=== PATIENT | male | born 1935 | race Caucasian/White ===

== ENCOUNTER 2016-11-25 08:25 | Outpatient (CLI) | payer MEDICARE, BC ==
--- NOTE | 2016-11-25 14:40 | Diagnostic Imaging Report ---
Indication: COUGH Technique: Two views of the chest Comparison: none Findings: There is mild pectus excavatum. Lungs and pleural spaces are clear. Heart size is normal. Lungs may be slightly hyperinflated. Impression: Equivocal mild pulmonary parenchyma hyperinflation. Correlate with clinical history No acute process
== END 2016-11-25 10:25 | disposition home or self-care (01) ==
LOC: RAD 08:25
DX: R05 Cough (principal)
CPT/HCPCS: 71020

== ENCOUNTER 2016-12-06 07:30 | Day surgery (SDC) | payer MEDICARE, BC ==
[~2016-12-06] VITALS: Ht 172.7 cm; Wt 61.2 kg
[2016-12-06] VITALS (9 sets, daily range): BP systolic 117–145; BP diastolic 69–85
[~2016-12-06 07:30] MED LIST: CRESTOR10 M2 ORAL; FISH OIL CAP1000 MG ORAL; MICARDIS40 MG ORAL; PROSCAR5 MG ORAL; VITAMIN D400 INTLU ORAL
[2016-12-06] MEDS ORDERED: LR 1000ml 1,000 ML IV SCH (08:00)
--- NOTE | 2016-12-06 10:28 | Pre-Procedure Note/Attestation ---
Pre-Procedure Note/Attestation Complete Prior to Procedure Planned Procedure: left Procedure Narrative: left inguinal hernia repair with mesh Indications for Procedure Pre-Operative Diagnosis: left inguinal hernia Attestation I attest that I discussed the nature of the procedure; its benefits; risks and complications; and alternatives (and the risks and benefits of such alternatives ), prior to the procedure, with the patient (or the patient's legal cash application representative). I attest that, if there was a reasonable possibility of needing a blood transfusion, the patient (or the patient's legal cash application representative) was given the [facility] standardized written summary, pursuant to the Vishnu Storm Blood Safety Act ([place] Health and Safety Code # 1645, as amended). I attest that I re-evaluated the patient just prior to the surgery and that there has been no change in the patient's H&P, except as documented below:none GUILLE BORJAS Dec 06, 2016 10:28
[2016-12-06] MEDS ORDERED: Bupivacaine w/Epi 0.5% 30ml Vial INJ ONE (11:17)
[2016-12-06] MEDS ORDERED: Bacitracin 50000 Units Vial ONE (11:17)
[2016-12-06] MEDS ORDERED: NS Irrig 1000ml IRRIG ONE (11:56)
--- NOTE | 2016-12-06 12:10 | Anethesia Preoperative Eval ---
Anesthesia Pre-op PMH/ROS General Date of Evaluation: Dec 06, 2016 Time of Evaluation: 11:12 Anesthesiologist: Yarely ASA Score: ASA 3 Mallampati Score Class I : Soft palate, uvula, fauces, pillars visible Class II: Soft palate, uvula, fauces visible Class III: Soft palate, base of uvula visible Class IV: Only hard plate visible Mallampati Classification: Class II Surgeon: Harrison Diagnosis: L Inguinal Hernia Surgical Procedure: L Inguinal Hernia Repair Anesthesia History: none Family History: no anesthesia problems Allergies: Coded Allergies: No Known Allergies (Unverified , 12/03/16) Medications: see eMAR Past Medical History Cardiovascular: Reports: HTN, other - HL Pulmonary: Reports: JAYLA Gastrointestinal/Genitourinary: Reports: GERD, other - BPH Musculoskeletal/Integumentary: Reports: other - Spine Pain PSxH Narrative: B Inguinal Hernia Repair, Colonoscopy Anesthesia Pre-op Phys. Exam Physician Exam Last Vital Signs Date Time Temp Pulse Resp B/P Pulse Ox O2 Delivery O2 Flow Rate FiO2 12/06/16 08:16 97.1 69 20 117/78 98 Room Air Constitutional: NAD Neurologic: CN 2-12 intact Cardiovascular: RRR Respiratory: CTA Gastrointestinal: S/NT/ND Airway Exam Mallampati Score: Class II MO: full ROM: full Teeth: missing Anesthesia Pre-op A/P Risk Assessment & Plan Assessment: ASA 3 Plan: GA, BIS, Glidescope Status Change Before Surgery: No Pre-Antibiotics Dru Gram Ancef IV Given Within 1 Hr of Incision: Yes Time Given: 11:31 Fab Pritchett MD Dec 06, 2016 12:10
[2016-12-06] MEDS ORDERED: LR 1000ml 1,000 ML IVLG SCH (12:11)
--- NOTE | 2016-12-06 12:14 | Immediate Post-Op Evaluation ---
Immediate Post-Op Evalulation Immediate Post-Op Evalulation Procedure: L Inguinal Hernia Repair Date of Evaluation: Dec 06, 2016 Time of Evaluation: 13:19 IV Fluids: 900 LR Blood Products: 0 Estimated Blood Loss: 25 Urinary Output: 0 Blood Pressure Systolic: 145 Blood Pressure Diastolic: 85 Pulse Rate: 73 Respiratory Rate: 16 O2 Sat by Pulse Oximetry: 100 Temperature (Fahrenheit): 97.8 Pain Score (1-10): 2 Nausea: No Vomiting: No Complications 0 Patient Status: awake, reacts, patent, extubated, none Hydration Status: adequate Dru Gram Ancef IV Given Within 1 Hr of Incision: Yes Time Given: 11:31 Fab Pritchett MD Dec 06, 2016 12:14
[2016-12-06] MEDS ORDERED: Ketorolac 30mg Inj IV PRN (12:15)
[2016-12-06] MEDS ORDERED: LORazepam Inj 2mg/ml 1ml IV PRN (12:15)
[2016-12-06] MEDS ORDERED: DiphenhydrAMINE 50mg/ml Inj IVP PRN (12:15)
[2016-12-06] MEDS ORDERED: Hydromorphone 0.5mg/0.5ml inj IVP PRN ×2 (12:15→18:01)
[2016-12-06] MEDS ORDERED: Oxycodone/Acetaminophen 5-325 ORAL PRN (12:15)
[2016-12-06] MEDS ORDERED: Atropine Inj 1mg/10ml Syr IV PRN (12:15)
[2016-12-06] MEDS ORDERED: Metoclopramide 10mg/2ml Inj IVP PRN (12:15)
[2016-12-06] MEDS ORDERED: Norco 5mg/325mg tab ORAL PRN (12:15)
[2016-12-06] MEDS ORDERED: Midazolam 2mg/2ml Inj IVP PRN (12:15)
[2016-12-06] MEDS ORDERED: Meperidine 25mg/0.5ml Inj IV PRN (12:15)
[2016-12-06] MEDS ORDERED: Norco 7.5mg/325mg tab ORAL PRN (12:15)
[2016-12-06] MEDS ORDERED: fentaNYL 100 mcg/2 mL IV PRN (12:15)
[2016-12-06] MEDS ORDERED: Ketorolac 60mg Inj IV PRN (12:15)
--- NOTE | 2016-12-06 12:15 | 48 Hour Post Anesthesia Eval ---
Post Anesthesia Evaluation Procedure: L Inguinal Hernia Repair Date of Evaluation: Dec 06, 2016 Time of Evaluation: 15:22 Blood Pressure Systolic: 146 0: 77 Pulse Rate: 68 Respiratory Rate: 18 Temperature (Fahrenheit): 98.2 O2 Sat by Pulse Oximetry: 100 Airway: patent Nausea: No Vomiting: No Pain Intensity: 2 Hydration Status: adequate Cardiopulmonary Status: Stable Mental Status/LOC: patient returned to baseline Follow-up Care/Observations: 0 Post-Anesthesia Complications: 0 Follow-up care needed: ready to discharge Fab Pritchett MD Dec 06, 2016 12:15
[2016-12-06] MEDS ORDERED: Neostigmine 1mg/ml 10ml Inj ONE (12:21)
--- NOTE | 2016-12-06 12:58 | Brief Operative Note ---
Immediate Post Operative Note Operative Note Pre-op Diagnosis: left inguinal hernia Procedure: repair left inguinal hernia with mesh recurrent) Post-op Diagnosis: same Surgeon: Aruna Anesthesiologist: Yarely Anesthesia: general, local Specimen: yes Complications: yes Estimated Blood Loss: minimal Drains: none Implant(s) used?: Yes - mesh GUILLE BORJAS Dec 06, 2016 12:58
[2016-12-06] MEDS ORDERED: D5 1/2NS w/KCl 20mEq 1,000 ML IV SCH (18:01)
[2016-12-06] MEDS ORDERED: HYDROmorphone 1mg/ml Carpuject IVP PRN (18:01)
--- NOTE | 2016-12-07 05:31 | Operative Note - Dictated ---
DATE OF OPERATION: 12/06/2016 SURGEON: Low Terry M.D. ANESTHESIOLOGIST: Fab Pritchett M.D. PREOPERATIVE DIAGNOSIS: Recurrent left inguinal hernia. POSTOPERATIVE DIAGNOSIS: Recurrent left inguinal hernia. PROCEDURES: Repair of left inguinal hernia with mesh. INDICATION: The patient was seen and examined. The patient of Dr. Zapata sent for repair of left inguinal hernia. The patient has had a previous repair years ago. There was presence of a large partially reducible bulge. The patient has been explained the pathophysiology, indications for surgery, risks, benefits, complications, need for mesh possibility, and possible recurrence of the hernia. He understands and agrees to proceed. OPERATIVE FINDINGS: The patient had a significant scarring with destruction of the shelving border and the fascia. There was a large indirect inguinal hernia with a very thin-walled sac repaired in the following manner. PROCEDURE IN DETAIL: The patient was identified in the preoperative holding area and the site was marked. He was brought into the operating room, induced with general anesthesia and endotracheal intubation. The abdomen was prepped and draped in the usual and sterile manner. Time-out performed confirming the patient's position, procedure, anesthesia, antibiotic, and allergy status. An incision was made in the left groin and carried down the skin and subcutaneous tissue. The Lacey's fascia was divided. The external oblique fascia was dissected. On opening, it was found that there is significant destruction that the shelving border cannot even be seen. The cord structures were carefully mobilized from the surrounding tissue and encircled with Rich drain. The dissection was carried down and with the cord structures now freed up, indirect hernia sac was identified and mobilized away from the cord. It was nicked and opened and then dissected down to the internal ring. There is some adhesions inside the sac that were divided and reduced. There is no bowel or viscera in the sac. The sac was suture ligated, but there was noted to be a thickened yellowish fatty pad on the sac. The sac was suture ligated with 2-0 Vicryl x2 and excised and sent to pathology for examination. The repair was then made using a piece of Marlex mesh cut in a parabolic shape. It was sutured to the condensation of transversalis fascia with a running 2-0 Prolene. The other side was sutured to the external oblique fascia at the site of where the shelving border was supposed to be. As mentioned, the tissue was very heavily scarred and partially missing. However, we were satisfied with the repair. The suture lines were carried above the internal ring and sutured to the fascia themselves.The mesh was trimmed. The cord structures were then replaced in the normal position. The external oblique fascia was then closed after making sure the sponge and needle count was correct, there was no active bleeding, and the mesh position was correct. The external oblique fascia was closed with running 2-0 Vicryl, the Lacey's fascia with 3-0 Vicryl, and skin closed with running 4-0 Vicryl subcuticular. A total 20 mL of 0.25% Marcaine locally infiltrated. The skin was then covered with Steri-Strips, 4 x 4, and an OpSite or Tegaderm. The blood loss was less than 10 mL. Both testes were in the scrotal sac in a normal position. Low Terry M.D. DR: LEO JOB#: [id number] CC: Low Terry M.D.; Fax#: [phone] Bennett M.D. ; Fax#: [phone] Zapata M.D.; Fax#: [phone] SUE
[2016-12-07] MEDS ORDERED: NORCO 5-325 TA1 EAC1 ORAL (08:45)
== END 2016-12-06 14:25 | disposition home or self-care (01) ==
LOC: SUR 07:30
DX: K40.91 Unilateral inguinal hernia, without obstruction or gangrene, recurrent (principal); I10 Essential (primary) hypertension; E78.5 Hyperlipidemia, unspecified; K21.9 Gastro-esophageal reflux disease without esophagitis; N40.0 Benign prostatic hyperplasia without lower urinary tract symptoms; G47.33 Obstructive sleep apnea (adult) (pediatric); J45.909 Unspecified asthma, uncomplicated
CPT/HCPCS: 49520; C1781; J2710; 94003; 94150

== ENCOUNTER 2016-12-07 08:26 | Emergency (ER) | payer MEDICARE, BC ==
[~2016-12-07] VITALS: Ht 172.7 cm; Wt 61.2 kg
[2016-12-07] MEDS ORDERED: NORCO 5-325 TA1 EAC1 ORAL (08:45)
[2016-12-07 09:14] VITALS: BP 104/42
--- NOTE | 2016-12-07 09:16 | Emergency Room Report ---
History of Present Illness General Chief Complaint: General Complaint Source: Patient, Caregiver Present Illness HPI The patient presents with bleeding from his incision site. He had a hernia repair yesterday at noon. There was no bleeding until he stood up this morning about 6:00. It soaked his clothes. The dressing was not changed. Not on blood thinner. No dizziness when standing. No fevers. Took pain pill in AM, though he denies he had any pain at that time. There is bruising in the groin and penis. He has been decreasing his blood pressure medicines at the recommendation of his doctors recently. No chest pain, dyspnea, dysuria. Not moved bowels 2 days. No abdominal pain. No HERNANDEZ. This is second surgery for hernia on L side. Allergies: Coded Allergies: No Known Allergies (Unverified , 12/03/16) Patient History Past Medical History: see triage record Past Surgical History: other - hernia repair Social History Narrative with radius grinder Reviewed Nursing Documentation: PMH: Agreed, PSxH: Agreed Nursing Documentation-PMH Hx Cardiac Problems: Yes Hx Hypertension: Yes Hx Cancer: No Hx Gastrointestinal Problems: Yes - hernias Hx Neurological Problems: No Review of Systems All Other Systems: negative except mentioned in HPI Physical Exam Vital Signs Date Time Temp Pulse Resp B/P Pulse Ox O2 Delivery O2 Flow Rate FiO2 12/07/16 08:37 98.2 83 16 99/61 98 Room Air Sp02 EP Interpretation: reviewed, normal General Appearance: well appearing, no apparent distress, GCS 15, thin - frail Head: normocephalic, atraumatic Eyes: bilateral eye PERRL, bilateral eye normal inspection ENT: hearing grossly normal, normal voice, moist mucus membranes Neck: full range of motion, supple Respiratory: lungs clear, normal breath sounds, no respiratory distress, speaking full sentences Cardiovascular #1: regular rate, rhythm Cardiovascular #2: 2+ radial (R), 2+ femoral (L) Gastrointestinal: normal bowel sounds, non tender, soft, no organomegaly, non- distended, no guarding, other - groin with serosanguineous fluid from incision. No active bleed or continued oozing., scaphoid Genitourinary: other - ecchymoses of penis Musculoskeletal: no calf tenderness Neurologic: alert, oriented x3, motor strength/tone normal, sensory intact, normal gait, speech normal Psychiatric: mood/affect normal Skin: hematoma - L groin, incision site without erythema or active bleed Medical Decision Making Diagnostic Impression: Primary Impression: Post-op bleeding Qualified Codes: K91.840 - Postprocedural hemorrhage of a digestive system organ or structure following a digestive system procedure Additional Impression: Hypotension (arterial) Qualified Codes: I95.9 - Hypotension, unspecified ER Course Patient presents with post op bleeding. DDx: vascular bleeding, seroma, hematoma amongst others. Need to assess H/H and INR. The patient was transiently hypotensive here. DDX: TX, dehydration, hemorrhagic shock, excess medication amongst others. This in the light of bleeding complicated the work up and we need to exclude TX. EKG and CMP needed. EKG below - no acute changes. Labs with slight leukocytosis, creat 1.2. Taking blood pressure between left and right side to look for difference. On the right he was normotensive. After given a small fluid bolus he became normotensive on the left-hand side also. He was ambulatory without any weakness or dizziness. There was no more bleeding from the postoperative site. Patient stable for outpatient observation and treatment Labs Test 12/07/16 09:08 White Blood Count 11.9 K/UL (4.8-10.8) Red Blood Count 3.76 M/UL (4.70-6.10) Hemoglobin 12.7 G/DL (14.2-18.0) Hematocrit 38.6 % (42.0-52.0) Mean Corpuscular Volume 103 FL (80-99) Mean Corpuscular Hemoglobin 33.9 PG (27.0-31.0) Mean Corpuscular Hemoglobin Concent 33.0 G/DL (32.0-36.0) Red Cell Distribution Width 12.3 % (11.6-14.8) Platelet Count 126 K/UL (150-450) Mean Platelet Volume 9.6 FL (6.5-10.1) Neutrophils (%) (Auto) 81.3 % (45.0-75.0) Lymphocytes (%) (Auto) 9.6 % (20.0-45.0) Monocytes (%) (Auto) 8.8 % (1.0-10.0) Eosinophils (%) (Auto) 0.0 % (0.0-3.0) Basophils (%) (Auto) 0.3 % (0.0-2.0) Prothrombin Time 11.3 SEC (9.30-11.50) Prothromb Time International Ratio 1.1 (0.9-1.1) Activated Partial Thromboplast Time 26 SEC (23-33) Sodium Level 130 mEQ/L (135-145) Potassium Level 4.0 mEQ/L (3.4-4.9) Chloride Level 94 mEQ/L (98-107) Carbon Dioxide Level 22 mEQ/L (20-30) Anion Gap 14 (5-15) Blood Urea Nitrogen 15 mg/dL (7-23) Creatinine 1.2 mg/dL (0.7-1.2) Estimat Glomerular Filtration Rate mL/min (>60) Glucose Level 108 mg/dL (74-106) Calcium Level 9.2 mg/dL (8.6-10.2) Total Bilirubin 1.4 mg/dL (0.0-1.2) Direct Bilirubin 0.3 mg/dL (0.1-0.3) Aspartate Amino Transf (AST/SGOT) 22 U/L (5-40) Alanine Aminotransferase (ALT/SGPT) 10 U/L (3-41) Alkaline Phosphatase 48 U/L (40-129) Total Protein 6.4 g/dL (6.6-8.7) Albumin 3.9 g/dL (3.5-5.2) Globulin 2.5 g/dL Albumin/Globulin Ratio 1.5 (1.0-2.7) EKG Diagnostic Results Rate: normal Rhythm: NSR ST Segments: no acute changes Rhythm Strip Diag. Results Rhythm: NSR, no PVC's, no ectopy Last Vital Signs Date Time Temp Pulse Resp B/P Pulse Ox O2 Delivery O2 Flow Rate FiO2 12/07/16 12:12 68 16 99/50 99 Room Air 12/07/16 11:02 98.1 Status: improved Disposition: HOME, SELF-CARE Condition: Improved Referrals: ALYCIA JOHNSON (PCP) Tyree Washington M.D. Dec 07, 2016 09:16
[2016-12-07 09:35] LABS: ALANINE AMINOTRANSFERASE 10 U/L (3-41); ALBUMIN/GLOBULIN RATIO 1.5 (1.0-2.7); ANION GAP 14 (5-15); ASPARTATE AMINO TRANSFERASE 22 U/L (5-40); CALCIUM 9.2 mg/dL (8.6-10.2); CARBON DIOXIDE 22 mEQ/L (20-30); CHLORIDE 94 mEQ/L (98-107); CREATININE 1.2 mg/dL (0.7-1.2); HEMOLYSIS 28; INR 1.1 (0.9-1.1); PROTHROMBIN TIME 11.3 SEC (9.30-11.50); SODIUM 130 mEQ/L (135-145); TOTAL PROTEIN 6.4 g/dL (6.6-8.7)
[2016-12-07 09:37] LABS: BASOPHILS % (AUTO) 0.3 % (0.0-2.0); LYMPHOCYTES % (AUTO) 9.6 % (20.0-45.0); MEAN CORPUSCULAR HEMOGLOBIN 33.9 PG (27.0-31.0); MEAN CORPUSCULAR VOLUME 103 FL (80-99); MEAN PLATELET VOLUME 9.6 FL (6.5-10.1); MONOCYTES % (AUTO) 8.8 % (1.0-10.0); NEUTROPHILS % (AUTO) 81.3 % (45.0-75.0); PLATELET COUNT 126 K/UL (150-450); RED BLOOD COUNT 3.76 M/UL (4.70-6.10); RED CELL DISTRIBUTION WIDTH 12.3 % (11.6-14.8); WHITE BLOOD COUNT 11.9 K/UL (4.8-10.8)
[2016-12-07 09:48] LABS: BILIRUBIN,DIRECT 0.3 mg/dL (0.1-0.3)
[2016-12-07 11:02] VITALS: BP 103/71
[2016-12-07 12:12] VITALS: BP 99/50
--- NOTE | 2016-12-08 17:07 | Cardiology Report ---
APPROVED REPORT EKG Measurement Heart [id number] Sinus rhythm with 1st degree AV block Low voltage QRS Cannot rule out Anterior infarct, age undetermined Abnormal ECG
== END 2016-12-07 12:17 | disposition home or self-care (01) ==
LOC: EMR 09:02
DX: K91.840 Postprocedural hemorrhage of a digestive system organ or structure following a digestive system procedure (principal); I95.9 Hypotension, unspecified; I10 Essential (primary) hypertension
CPT/HCPCS: 36415; 80053; 82248; 85025; 85610; 85730; 93005; 96360

== ENCOUNTER 2017-06-29 07:45 | Outpatient (CLI) | payer MEDICARE, BC ==
[~2017-06-29 07:45] MED LIST changes: +NORCO 5-325 TA1 EAC1 ORAL
--- NOTE | 2017-06-29 10:55 | Diagnostic Imaging Report ---
Indication: Cough Technique: 2 views of the chest Comparison: 11/25/2016. Findings: Lungs and pleural spaces are clear. Heart size is normal. Bones are unremarkable. No significant change. Impression: No acute process
== END 2017-06-29 19:45 | disposition home or self-care (01) ==
LOC: RAD 07:45
DX: R05 Cough (principal)
CPT/HCPCS: 71046

== ENCOUNTER 2017-07-04 05:46 | Day surgery (SDC) | payer MEDICARE, BC ==
--- NOTE | 2017-07-03 23:06 | Pre-op HX & Phy Repo 2 SIG ---
DATE OF ADMISSION: 07/04/2017 DATE OF SURGERY: 07/04/2017 PREOPERATIVE DIAGNOSIS: Recurrent left inguinal hernia. HISTORY OF PRESENT ILLNESS: The patient is a very pleasant 81-year-old male who was referred to me kindly by Dr. Jose Rafael Zapata for evaluation of a potentially recurrent left inguinal hernia. The patient states that he has had two prior left inguinal hernia repairs in the past beginning with an initial one approximately 10 to [address] Bay Bennett followed by a recurrence and repeat left inguinal hernia repair by Dr. Low Terry approximately 1 year ago. Since then, he has noted some discomfort in the left groin region and a reducible bulge, which is worse when he is upright and straining, and reduced when he is lying supine. Denies any obstructive symptoms. He has fortunately not had any complications of incarceration and believes that only recurred in the past few months. PAST MEDICAL HISTORY: Hypertension, diverticulosis, bilateral inguinal hernia status post repair with recurrence on the left side, BPH, sleep apnea, reactive airway disease. PAST SURGICAL HISTORY: Bilateral inguinal hernia repair 10 to 15 years ago followed by recurrence on the left side requiring repeat left inguinal hernia repair and currently possibly has another recurrence. The patient had tonsillectomy and cystoscopy prior as well, a root canal surgery, and a boil drainage. FAMILY HISTORY: Father . Mother . The patient indicates family history of heart disease on the mother's side and hypertension on the father's side. Father of brain cancer. Brother has schizophrenia and BPH. SOCIAL HISTORY: The patient is retired. He lives with his brother in a home in [place]. He is single and unemployed. He does not smoke, drink, or use drugs. REVIEW OF SYSTEMS: Twelve-point review of systems negative except for as HPI. PHYSICAL EXAMINATION: GENERAL: Alert, awake, oriented x3, in no acute distress. HEENT: PERRLA. Extraocular movements intact. Cranial nerves II through XII grossly intact. LUNGS: Clear to auscultation bilaterally. ABDOMEN: Soft, nontender, nondistended. Bowel sounds positive. GENITOURINARY: The patient has a right inguinal incision, it is well healed. The patient has a left inguinal hernia incision that is well healed. He has a reducible left inguinal budge that is in a mildly atypical position above and lateral to the inguinal ligament, very easily reproducible with Valsalva and easily reduced without complications. The right testicle is normal and the right inguinal canal is normally palpated. The left testicle is present, but there is a significant amount of scar tissue versus potential mesh migration in the left groin around the pubic tubercle and the old surgical incision site. This is a hardened mass area that could be potentially migrated mesh versus scar tissue. EXTREMITIES: Within normal limits. LABORATORY DATA: Please refer to secondary sheets with labs. ASSESSMENT AND PLAN: This is a 81-year-old male with a possible recurrent left inguinal hernia that is fairly moderate in size in an atypical location and complicated given two prior repairs with mesh. The area of thickening around the caudal medial location to the hernia, which is likely potentially mesh migration from his prior surgeries. The patient states that it does cause him discomfort and it is moderate in size and fortunately not having complications for me. He has requested repair. Risks, benefits, and alternatives to surgery including a second redo hernia surgery were discussed with the patient in detail. I explained to him that he is at much higher risk than the initial surgery given second surgery given the two prior mesh placements and can result in infection, bleeding, mesh migration, injury to the mesh, injury to the cord, loss of testicle, long-term pain, neuropathy, and potential failure of surgery given the prior surgeries as well. The patient expressed understanding and requested to proceed with surgical intervention and consent was signed. Plan is for a laparoscopic versus open left inguinal hernia repair with mesh. Given his two prior surgeries and the amount of scar tissue in the left groin region, we will begin with laparoscopic evaluation of the left hemipelvis and groin. In following, we will decide if necessary to proceed with laparoscopic repair or open repair. I discussed with the patient that this could potentially also be a incisional hernia from his prior surgeries. Planned schedule date 07/04/2017. Preoperative workup completed by Dr. Jose Rafael Zapata and the patient has been evaluated by Dr. Figueroa in the office. Dario Figueroa M.D. DR: Sean JOB#: [id number] CC: SUE
[~2017-07-04] VITALS: Ht 172.7 cm; Wt 63.5 kg
[2017-07-04] VITALS (12 sets, daily range): BP systolic 122–140; BP diastolic 67–76
[2017-07-04] MEDS ORDERED: LR 1000ml 1,000 ML IVLG SCH (06:59)
[2017-07-04] MEDS ORDERED: Midazolam 2mg/2ml Inj IVP PRN (07:00)
[2017-07-04] MEDS ORDERED: Ketorolac 30mg Inj IV PRN (07:00)
[2017-07-04] MEDS ORDERED: Hydromorphone 0.5mg/0.5ml inj IVP PRN (07:00)
[2017-07-04] MEDS ORDERED: Ketorolac 60mg Inj IV PRN (07:00)
[2017-07-04] MEDS ORDERED: fentaNYL 100 mcg/2 mL IV PRN (07:00)
[2017-07-04] MEDS ORDERED: ceFAZolin sod 2 GM in NS 55 ML IVPB ONE (07:00)
[2017-07-04] MEDS ORDERED: LORazepam Inj 2mg/ml 1ml IV PRN (07:00)
[2017-07-04] MEDS ORDERED: Acetaminophen (Non formulary) 100 ML IV ONE (07:00)
[2017-07-04] MEDS ORDERED: oxyCODONE HCL/Acetaminophen 5/325mg ORAL PRN (07:00)
[2017-07-04] MEDS ORDERED: Labetalol 5mg/ml 20ml vial IV PRN (07:00)
[2017-07-04] MEDS ORDERED: HYDROcodone/Acetamin 7.5/325 tab ORAL PRN (07:00)
[2017-07-04] MEDS ORDERED: Atropine Inj 1mg/10ml Syr IV PRN (07:00)
[2017-07-04] MEDS ORDERED: DiphenhydrAMINE 50mg/ml Inj IVP PRN (07:00)
[2017-07-04] MEDS ORDERED: Norco 5mg/325mg tab ORAL PRN ×2 (07:00→09:45)
[2017-07-04] MEDS ORDERED: Bupivacaine 0.5% Inj 30 ml vial INJ ONE ×2 (07:03→07:15)
[2017-07-04] MEDS ORDERED: EPINEPHrine 1mg/1ml Amp ONE (07:03)
[2017-07-04] MEDS ORDERED: Lidocaine 1% Plain 30 ml INJ ONE (07:03)
[2017-07-04] MEDS ORDERED: Bacitracin 50000 Units Vial ONE (07:03)
[2017-07-04] MEDS ORDERED: Bacitracin 50000 Units Vial IRRIG ONE (07:15)
[2017-07-04] MEDS ORDERED: EPINEPHrine 1mg/1ml Amp INJ ONE (07:15)
--- NOTE | 2017-07-04 07:24 | Anethesia Preoperative Eval ---
Anesthesia Pre-op PMH/ROS General Date of Evaluation: Jul 04, 2017 Time of Evaluation: 07:26 Anesthesiologist: Yarely ASA Score: ASA 3 Mallampati Score Class I : Soft palate, uvula, fauces, pillars visible Class II: Soft palate, uvula, fauces visible Class III: Soft palate, base of uvula visible Class IV: Only hard plate visible Mallampati Classification: Class II Surgeon: Henry Diagnosis: Left Inguinal Hernia Surgical Procedure: Laparoscopic Inguinal Hernia repair Left Anesthesia History: none Family History: no anesthesia problems Allergies: Coded Allergies: No Known Allergies (Unverified , 12/03/16) Medications: see eMAR Past Medical History Cardiovascular: Reports: HTN, other - HL Pulmonary: Reports: asthma, JAYLA Gastrointestinal/Genitourinary: Reports: GERD, other - BPH, Diverticulitis PSxH Narrative: Bilateral Hernia Repair Anesthesia Pre-op Phys. Exam Physician Exam Last Vital Signs Date Time Temp Pulse Resp B/P (MAP) Pulse Ox O2 Delivery O2 Flow Rate FiO2 18 06:20 98.3 65 18 131/70 98 Room Air Constitutional: NAD Neurologic: CN 2-12 intact Cardiovascular: RRR Respiratory: CTA Gastrointestinal: S/NT/ND Airway Exam Mallampati Score: Class II MO: full ROM: limited Teeth: intact Anesthesia Pre-op A/P Risk Assessment & Plan Assessment: ASA 3 Plan: GA, BIS, GlideScope Go Status Change Before Surgery: No Pre-Antibiotics Dru Grams Ancef IV Given Within 1 Hr of Incision: Yes Time Given: 07:43 Fab Pritchett MD Jul 04, 2017 07:24
[2017-07-04] MEDS ORDERED: Lidocaine 1% MPF 10mg/ml 5ml ONE (07:30)
[2017-07-04] MEDS ORDERED: NS Irrig 1000ml ONE (07:30)
[2017-07-04] MEDS ORDERED: Dexamethasone 4mg/ml vial ONE (07:30)
[2017-07-04] MEDS ORDERED: Midazolam 2mg/2ml Inj ONE (07:30)
[2017-07-04] MEDS ORDERED: LR 1000ml ONE (07:30)
[2017-07-04] MEDS ORDERED: Sterile Water Irrig 1000ml IRRIG ONE (07:30)
[2017-07-04] MEDS ORDERED: Propofol 200mg/20ml IV ONE (07:30)
[2017-07-04] MEDS ORDERED: Alfentanil 2ml Inj ONE (07:30)
--- NOTE | 2017-07-04 07:32 | Immediate Post-Op Evaluation ---
Immediate Post-Op Evalulation Immediate Post-Op Evalulation Procedure: Laparoscopic Inguinal Hernia repair Left Date of Evaluation: Jul 04, 2017 Time of Evaluation: 09:49 IV Fluids: 1100 LR Blood Products: 0 Estimated Blood Loss: 10 Urinary Output: 0 Blood Pressure Systolic: 137 Blood Pressure Diastolic: 72 Pulse Rate: 74 Respiratory Rate: 16 O2 Sat by Pulse Oximetry: 100 Temperature (Fahrenheit): 98.7 Pain Score (1-10): 2 Nausea: No Vomiting: No Complications 0 Patient Status: awake, reacts, patent, extubated, none Hydration Status: adequate Dru grams Ancef IV Given Within 1 Hr of Incision: Yes Time Given: 07:43 Fab Pritchett MD Jul 04, 2017 07:32
--- NOTE | 2017-07-04 08:58 | 48 Hour Post Anesthesia Eval ---
Post Anesthesia Evaluation Procedure: Laparoscopic Inguinal Hernia repair Left Date of Evaluation: Jul 04, 2017 Time of Evaluation: 11:52 Blood Pressure Systolic: 134 0: 71 Pulse Rate: 64 Respiratory Rate: 18 Temperature (Fahrenheit): 98.6 O2 Sat by Pulse Oximetry: 100 Airway: patent Nausea: No Vomiting: No Pain Intensity: 2 Hydration Status: adequate Cardiopulmonary Status: Stable Mental Status/LOC: patient returned to baseline Follow-up Care/Observations: 0 Post-Anesthesia Complications: 0 Follow-up care needed: ready to discharge Fab Pritchett MD Jul 04, 2017 08:58
--- NOTE | 2017-07-04 09:41 | Pre-Procedure Note/Attestation ---
Pre-Procedure Note/Attestation Complete Prior to Procedure Planned Procedure: left Procedure Narrative: laparoscopic possible open left recurrent inguinal hernia repair with mesh Indications for Procedure Pre-Operative Diagnosis: recurrent left inguinal hernia Attestation I attest that I discussed the nature of the procedure; its benefits; risks and complications; and alternatives (and the risks and benefits of such alternatives ), prior to the procedure, with the patient (or the patient's legal client support representative). I attest that, if there was a reasonable possibility of needing a blood transfusion, the patient (or the patient's legal client support representative) was given the [facility] standardized written summary, pursuant to the Vishnu Octa Blood Safety Act ([place] Health and Safety Code # 1645, as amended). I attest that I re-evaluated the patient just prior to the surgery and that there has been no change in the patient's H&P, except as documented below: Dario Figueroa Jul 04, 2017 09:41
[2017-07-04] MEDS ORDERED: D5 1/2NS 1,000 ML IV SCH (09:45)
[2017-07-04] MEDS ORDERED: Tylenol #3 tab (300mg/30mg) ORAL PRN (09:45)
[2017-07-04] MEDS ORDERED: HYDROmorphone 1mg/ml Carpuject SUBQ PRN (09:45)
--- NOTE | 2017-07-04 15:40 | Brief Operative Note ---
Immediate Post Operative Note Operative Note Pre-op Diagnosis: recurrent left inguinal hernia Procedure: laparoscopic assisted left incisional ventral hernia repair Post-op Diagnosis: left inguinal/lower abdominal incisional ventral hernia Surgeon: janis Anesthesiologist: nirmala Anesthesia: general, local Specimen: none Complications: none Condition: stable Fluids: see records Estimated Blood Loss: minimal Drains: none Implant(s) used?: Dario Coyle Jul 04, 2017 15:40
--- NOTE | 2017-07-05 02:00 | Operative Note - Dictated ---
DATE OF OPERATION: 07/04/2017 PREOPERATIVE DIAGNOSIS: Recurrent left inguinal hernia. POSTOPERATIVE DIAGNOSES: Left inguinal/lower abdominal incisional ventral hernia. OPERATION PERFORMED: Laparoscopic-assisted left incisional ventral hernia repair. ATTENDING SURGEON: Dario Figueroa M.D. NEWSPAPER PHOTOJOURNALIST: None. ANESTHESIOLOGIST: Fab Pritchett M.D. 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 SPECIMENS: None. COMPLICATIONS: None. FLUIDS: Please see the anesthesia record. ESTIMATED BLOOD LOSS: Minimal. DRAINS: None. WOUND CLASSIFICATION: Class I. ANTIBIOTICS: A 2 g Ancef IV given one hour prior to cut time. COUNTS: Sponge and needle count correct x2. INDICATIONS FOR PROCEDURE: The patient is a 81-year-old male, who presented to my office for evaluation of potentially a recurrent left inguinal hernia. The patient had a history of bilateral inguinal hernia repairs approximately 10 to 15 years ago followed by recurrence on the left side, which was repaired approximately one year ago. The patient states that soon after that surgery, he began to notice a bulge in his left lower abdomen/groin. It was causing him discomfort and required reduction at times. When seen in my office, the patient's prior incisions were noted and well healed. He had notable scar tissue from mesh placements noted in the bilateral groins. In the area of the left lower abdomen, left groin around the prior incision, there was a moderate-sized bulge/hernia that was easily reducible and also easily reproducible on examination. Given the discomfort it is causing the patient and the risks, repair was indicated and recommended. Risks, benefits, and alternatives were discussed with the patient in detail. Given this is potentially a recurrence and a second episode of recurrence requiring a third operation and two prior operations were done open with mesh placement, decision was made to proceed with laparoscopic evaluation, potentially laparoscopic versus open repair. Risks, benefits and alternatives discussed in detail. The patient expressed understanding, understood the plan and consented to surgery. OPERATIVE NOTE: The patient was taken to the operating room, placed on the operating table in supine position with bilateral arms out. All bony prominences were well padded with pads. Preoperative time-out was taken identifying the patient, procedure, operative staff, and surgical staff. General anesthesia was induced and the patient was intubated. The left arm was tucked. The abdomen including the bilateral groins were clipped, prepped, and draped in standard surgical fashion. We began by making a small infraumbilical incision. Incision was carried down to the fascia, which was elevated and incised. The abdomen was entered using open Tangela technique without complication. Direct visualization in the abdomen allowed for trocar placement without difficulty. The abdomen was then insufflated to 12 to 15 mmHg. The patient tolerated the insufflation well. A laparoscope was inserted and no complications from initial trocar placement was noted. No abnormalities noted in the right or left upper quadrants. The pelvis was otherwise unremarkable. The right groin was evaluated and no hernia or abnormalities were noted. Good hernia repair from prior herniorrhaphy was noted without recurrence. In the left lower abdomen, the anal canal and entry was identified with cord structures and prior repair. There was no direct or indirect hernia noted, but on examination there was a incisional ventral hernia noted that was superior and medial to the internal canal orifice. Palpation of this area identified a weakening in the tendon sheath superior to the inguinal ligament at the tendon sheath confluence of the musculature would be and the defect was noted. When defect was palpated, the internal ring was easily notable and intact and this area was just inferior and medial to it. Given these findings and no recurrence of the left inguinal direct or indirect hernia, decision was made to proceed with repair of the ventral hernia identified in its proper anatomy laparoscopically. At this time, decision was made to evaluate the hernia further and identify the defect being only approximately 1 to 1.5 centimeters large with a much larger hernia sac. An incision was made in the left lower abdomen at the apex of the hernia sac, which was bulging. Care was taken to just incise the epidermis and dermis and then bluntly dissect out the hernia sac. Fortunately, the hernia sac was easily dissected out and the borders of the fascial defect in the left lower groin were identified. The hernia sac was inverted in and Endoloop placed around the hernia sac. High ligation of the sac internally was performed. Following this, the fascial defect was then closed using multiple interrupted 0 Vicryl sutures. In doing so, the defect was evaluated with insufflation, directly visualized with laparoscope and defect was no longer present and satisfactory repair was identified and noted. Given the small size of the defect and location and it being an incisional ventral defect, decision was made not to place a mesh. Just adjacent to the defect, there was still a mesh from patient's prior left inguinal herniorrhaphy, and the canal contents including the cord and cord structures were just adjacent to it entering through the internal ring and mesh placement would not have been advised. Following satisfactory repair, the wound was irrigated and closed in a two-layer fashion beginning with 3-0 Vicryl dermal sutures followed by 4-0 Monocryl subcuticular suture. The abdomen was then allowed to desufflate and secondary trocars removed under direct visualization and the umbilical trocar removed. The umbilical trocar site fascia was closed using a [id number] 0 Vicryl suture. Remaining skin incisions were closed using a 4-0 Monocryl subcuticular suture. Wounds were cleansed. Dermabond and Steri-Strips were placed. Of note, secondary trocars placed under direct visualization in the suprapubic region without complication. Dario Figueroa M.D. DR: DAKOTA JOB#: [id number] CC: SUE
== END 2017-07-04 13:10 | disposition home or self-care (01) ==
LOC: SUR 05:46
DX: K43.2 Incisional hernia without obstruction or gangrene (principal); K40.90 Unilateral inguinal hernia, without obstruction or gangrene, not specified as recurrent; I10 Essential (primary) hypertension; K57.90 Diverticulosis of intestine, part unspecified, without perforation or abscess without bleeding; F41.9 Anxiety disorder, unspecified; G47.33 Obstructive sleep apnea (adult) (pediatric); K21.9 Gastro-esophageal reflux disease without esophagitis; Z82.49 Family history of ischemic heart disease and other diseases of the circulatory system; Z80.8 Family history of malignant neoplasm of other organs or systems; Z81.8 Family history of other mental and behavioral disorders
CPT/HCPCS: 49657; J0171; J0690; J1100; J2250; J2405; J2704; J3490; J7120; 94003; 94150

== ENCOUNTER 2018-03-03 07:51 | Day surgery (SDC) | payer MEDICARE, MEDICAID ==
[2018-03-03] VITALS (12 sets, daily range): BP systolic 137–168; BP diastolic 61–89
[~2018-03-03] VITALS: Ht 172.7 cm; Wt 63.5 kg
--- NOTE | 2018-03-03 08:48 | Pre-Procedure Note/Attestation ---
Pre-Procedure Note/Attestation Complete Prior to Procedure Planned Procedure: left Procedure Narrative: laparoscopic possible open left recurrent ventral hernia repair with mesh Indications for Procedure Pre-Operative Diagnosis: recurrent left ventral hernia Attestation I attest that I discussed the nature of the procedure; its benefits; risks and complications; and alternatives (and the risks and benefits of such alternatives ), prior to the procedure, with the patient (or the patient's legal telephone services sales representative). I attest that, if there was a reasonable possibility of needing a blood transfusion, the patient (or the patient's legal telephone services sales representative) was given the [facility] standardized written summary, pursuant to the [place] Blood Safety Act ([place] Health and Safety Code # 1645, as amended). I attest that I re-evaluated the patient just prior to the surgery and that there has been no change in the patient's H&P, except as documented below: Dario Figueroa Mar 03, 2018 08:48
--- NOTE | 2018-03-03 08:57 | History and Physical ---
History of Present Illness General Date patient seen: Mar 03, 2018 Present Illness HPI 82 year old male well known to me from prior consultations and surgery. Patient initially seen earlier this year after referral to me for evaluation of incisional inguinal / ventral hernia. States years ago he developed a hernia in his left lower abdomen / inguinal hernia which was repaired at outside facility; unfortunately records not available and patient unsure about exact surgery performed. Since, noted recurrence and had a second repair at outside facility; again records unavailable and patient unsure what recurrence was and how it was repaired. He then developed a hernia but in the lateral superior aspect of prior operative site. complex hernia which was repaired without mesh by myself earlier this year. hernia was more ventral than inguinal and possibly related to opening of oblique fascia during prior surgery. after repair patient did well for 3-4 months post op and had uneventful recovery. unfortunately had recurrence and was seen again recently for evaluation. we discussed these findings and exam was concerning given bowel contents were noted in hernia sac now. no obstructive symptoms. after discussing care plan patient decided he would prefer to have repair again and was scheduled for surgery. Allergies: Coded Allergies: No Known Allergies (Unverified , 12/03/16) Medication History Scheduled Finasteride* (Proscar*), 5 MG ORAL DAILY, (Reported) Fish Oil (Fish Oil 1,000 mg Capsule), 1,000 MG ORAL DAILY, (Reported) Telmisartan (Micardis), 20 MG ORAL QOD, (Reported) Vitamin D (Vitamin D3), 2,000 UNITS ORAL DAILY, (Reported) Patient History History Provided By: Patient, PMD Healthcare decision maker N Resuscitation status Advanced Directive on File Past Medical/Surgical History Past Medical/Surgical History: (1) Ventral incisional hernia without obstruction or gangrene (2) Recurrent ventral incisional hernia (3) Hypotension (arterial) (4) Post-op bleeding Review of Systems Constitutional: Denies: no symptoms, see HPI, chills, sweats, fever, malaise, weakness, other Eye: Denies: no symptoms, see HPI, eye pain, blurred vision, tearing, double vision, nose pain, nose congestion, acuity changes, discharge, other ENT: Denies: no symptoms, see HPI, ear pain, ear discharge, nose pain, nose congestion, throat pain, throat swelling, mouth pain, hearing loss, nasal discharge, other Respiratory: Denies: no symptoms, see HPI, cough, orthopnea, shortness of breath, stridor, wheezing, [place], sputum, other Cardiovascular: Denies: no symptoms, see HPI, chest pain, edema, palpitations, syncope, PND, other Gastrointestinal: Denies: no symptoms, see HPI, abdominal pain, constipation, diarrhea, nausea, vomiting, melena, hematemesis, other Genitourinary: Denies: no symptoms, see HPI, discharge, dysuria, frequency, hematuria, pain, retention, incontinence, urgency, vag bleed/dc, other Musculoskeletal: Denies: no symptoms, see HPI, back pain, gout, joint pain, joint swelling, muscle pain, muscle stiffness, other Skin: Denies: no symptoms, see HPI, rash, change in color, change in hair/nails , dryness, lesions, other Psychiatric: Denies: no symptoms, see HPI, prior hx, anxiety, depressed feelings, emotional problems, SI, HI, hallucinations, other Neurological: Denies: no symptoms, see HPI, headache, numbness, paresthesia, seizure, tingling, tremors, focal weakness, syncope, dizziness, other Endocrine: Denies: no symptoms, see HPI, excessive sweating, flushing, intolerance to temperature, increased thirst, increased urine, unexplained weight loss, other Hematologic/Lymphatic: Denies: no symptoms, see HPI, anemia, blood clots, easy bleeding, easy bruising, swollen glands, diathesis, other All Other Systems: negative except mentioned in HPI Physical Exam General Appearance: no apparent distress, alert Lines, tubes and drains: peripheral HEENT: normocephalic, atraumatic, mucous membranes moist, PERRL Neck: normal inspection Respiratory/Chest: normal breath sounds, no respiratory distress, no accessory muscle use Cardiovascular/Chest: normal rate, regular rhythm Abdomen: soft, no organomegaly, no mass, hernia Extremities: normal range of motion, non-tender, normal inspection, no calf tenderness Skin Exam: warm/dry Neurologic: alert, oriented x 3 Last 24 Hour Vital Signs Date Time Temp Pulse Resp B/P (MAP) Pulse Ox O2 Delivery O2 Flow Rate FiO2 03/03/18 08:37 Room Air 03/03/18 08:35 97.7 79 18 160/89 97 Room Air 97.7 Height (Feet): 5 Height (Inches): 8.00 Weight (Pounds): 140 Assessment/Plan Problem List: (1) Recurrent ventral incisional hernia Assessment & Plan: Plan for laparoscopic possible open left recurrent ventral hernia repair with mesh discussed recurrence with patient and decision made to use mesh during this repair given consent obtained npo ivf pre op abx to OR for laparoscopic possible open left recurrent ventral hernia repair with mesh ICD Codes: K43.2 - Incisional hernia without obstruction or gangrene SNOMED: [id number] Status: stable Dario Figueroa Mar 03, 2018 08:57
[2018-03-03] MEDS ORDERED: Sterile Water For Irrig 2000ml IRRIG ONE (09:00)
[2018-03-03] MEDS ORDERED: ceFAZolin sod 2 GM in D5W 110 ML IV ONE (09:00)
[2018-03-03] MEDS ORDERED: Sterile Water Irrig 1000ml IRRIG ONE (09:00)
[2018-03-03] MEDS ORDERED: NS Irrig 1000ml ONE (09:00)
[2018-03-03] MEDS ORDERED: Zemuron 50mg/5ml Inj IV ONE (09:00)
[2018-03-03] MEDS ORDERED: LR 1000ml ONE (09:00)
[2018-03-03] MEDS ORDERED: Lidocaine 1% MPF 10mg/ml 5ml ONE (09:18)
[2018-03-03] MEDS ORDERED: Propofol 200mg/20ml IV ONE (09:18)
[2018-03-03] MEDS ORDERED: fentaNYL 100 mcg/2 mL IV ONE (09:18)
[2018-03-03] MEDS ORDERED: Bupivacaine w/Epi 0.25% 30ml Vial INJ ONE (09:32)
[2018-03-03] MEDS ORDERED: LR 1000ml 1,000 ML IVLG SCH (09:46)
--- NOTE | 2018-03-03 09:46 | Anethesia Preoperative Eval ---
Anesthesia Pre-op PMH/ROS General Date of Evaluation: Mar 03, 2018 Anesthesiologist: Sherman ASA Score: ASA 2 Mallampati Score Class I : Soft palate, uvula, fauces, pillars visible Class II: Soft palate, uvula, fauces visible Class III: Soft palate, base of uvula visible Class IV: Only hard plate visible Mallampati Classification: Class II Surgeon: Henry Diagnosis: Ventral hernia Surgical Procedure: Laparoscopic ventral hernia repair Anesthesia History: none Family History: no anesthesia problems Allergies: Coded Allergies: No Known Allergies (Unverified , 12/03/16) Medications: see eMAR Past Medical History Cardiovascular: Reports: HTN, other - HLD; Denies: CAD, IA, valve dz, arrhythmia Pulmonary: Denies: asthma, COPD, JAYLA, other Gastrointestinal/Genitourinary: Reports: GERD, other - BPH, mild esophageal stricture; Denies: CRI, ESRD Neurologic/Psychiatric: Denies: dementia, CVA, depression/anxiety, TIA, other Endocrine: Denies: DM, hypothyroidism, steroids, other HEENT: Denies: cataract (L), cataract (R), glaucoma, [place] (L), [place] (R), other Hematology/Immune: Denies: anemia, DVT, bleeding disorder, other Musculoskeletal/Integumentary: Reports: OA, other - skin CA; Denies: RA, DJD, DDD, edema PSxH Narrative: Bilateral IHR Anesthesia Pre-op Phys. Exam Physician Exam Last Vital Signs Date Time Temp Pulse Resp B/P (MAP) Pulse Ox O2 Delivery O2 Flow Rate FiO2 03/03/18 08:37 Room Air 03/03/18 08:35 97.7 79 18 160/89 97 97.7 Constitutional: NAD Cardiovascular: RRR Respiratory: CTA Airway Exam Mallampati Score: Class II MO: full ROM: full Teeth: intact Anesthesia Pre-op A/P Labs see chart Studies Pre-op Studies: EKG - sr Risk Assessment & Plan Assessment: ASA II Plan: GA Status Change Before Surgery: No Pre-Antibiotics Drug: Ancef 1g Given Within 1 Hr of Incision: Yes Time Given: 09:30 Kristine Rice MD Mar 03, 2018 09:46
[2018-03-03] MEDS ORDERED: Labetalol 5mg/ml 20ml vial IV PRN (10:00)
[2018-03-03] MEDS ORDERED: DiphenhydrAMINE 50mg/ml Inj IVP PRN ×2 (10:00→12:30)
[2018-03-03] MEDS ORDERED: Hydromorphone 0.5mg/0.5ml inj IVP PRN (10:00)
[2018-03-03] MEDS ORDERED: Metoclopramide 10mg/2ml Inj IVP PRN ×2 (10:00→12:30)
[2018-03-03] MEDS ORDERED: LORazepam Inj 2mg/ml 1ml IV PRN (10:00)
[2018-03-03] MEDS ORDERED: fentaNYL 100 mcg/2 mL IV PRN (10:00)
[2018-03-03] MEDS ORDERED: Ketorolac 30mg Inj ONE (11:46)
--- NOTE | 2018-03-03 12:18 | Immediate Post-Op Evaluation ---
Immediate Post-Op Evalulation Immediate Post-Op Evalulation Procedure: Laparoscopic, converted to open ventral hernia repair Date of Evaluation: Mar 03, 2018 Time of Evaluation: 12:19 IV Fluids: 700 Blood Products: 0 Estimated Blood Loss: min Urinary Output: 0 Blood Pressure Systolic: 162 Blood Pressure Diastolic: 83 Pulse Rate: 69 Respiratory Rate: 16 O2 Sat by Pulse Oximetry: 100 Temperature (Fahrenheit): 97.8 Pain Score (1-10): 0 Nausea: No Vomiting: No Complications 0 Patient Status: awake, reacts, patent, none Hydration Status: adequate Drug: Ancef 1g Given Within 1 Hr of Incision: Yes Time Given: 09:30 Kristine Rice MD Mar 03, 2018 12:18
--- NOTE | 2018-03-03 12:19 | 48 Hour Post Anesthesia Eval ---
Post Anesthesia Evaluation Procedure: Laparoscopic, converted to open ventral hernia repair Date of Evaluation: Mar 03, 2018 Airway: patent Nausea: No Vomiting: No Pain Intensity: 2 Hydration Status: adequate Cardiopulmonary Status: at baseline Mental Status/LOC: patient returned to baseline Post-Anesthesia Complications: 0 Follow-up care needed: ready to discharge Kristine Rice MD Mar 03, 2018 12:19
--- NOTE | 2018-03-03 12:24 | Brief Operative Note ---
Immediate Post Operative Note Operative Note Pre-op Diagnosis: recurrent left ventral hernia Procedure: laparoscopic assisted left ventral hernia repair with mesh Post-op Diagnosis: same as pre-op Surgeon: janis Anesthesiologist: michelle hernandez Anesthesia: general, local Specimen: yes - hernia sac Complications: none Condition: stable Fluids: see records Estimated Blood Loss: minimal Drains: none Implant(s) used?: Yes - bard mesh Dario Figueroa Mar 03, 2018 12:24
[2018-03-03] MEDS ORDERED: HYDROmorphone 1mg/ml Carpuject SUBQ PRN (12:30)
[2018-03-03] MEDS ORDERED: Norco 5mg/325mg tab ORAL PRN (12:30)
[2018-03-03] MEDS ORDERED: Tylenol #3 tab (300mg/30mg) ORAL PRN (12:30)
[2018-03-03] MEDS ORDERED: D5 1/2NS 1,000 ML IV SCH (12:30)
[2018-03-03] MEDS ORDERED: Morphine Sulfate 2mg/ml Inj IVP PRN (12:30)
--- NOTE | 2018-03-05 22:15 | Operative Note - Dictated ---
DATE OF OPERATION: 03/03/2018 PREOPERATIVE DIAGNOSIS: Recurrent left incisional ventral hernia. POSTOP DIAGNOSIS: Recurrent left incisional ventral hernia. OPERATION PERFORMED: Laparoscopic-assisted left ventral hernia repair with mesh. ATTENDING SURGEON: Dario Figueroa M.D. EVP MARKETING: None ANESTHESIOLOGIST: Kasi Whitaker M.D. ANESTHESIA: General. SPECIMENS: Hernia sac. COMPLICATIONS: None. DRAINS: None. CONDITION: Stable. IV FLUIDS: Please see anesthesia records. COMPLICATIONS: None. WOUND CLASSIFICATION: Class I. IMPLANTS: Bard Ventralight mesh. COUNT: Sponge and needle count correct x2. INDICATIONS FOR PROCEDURE: This is an 82-year-old male, well known to me from prior left incisional ventral hernia repair. The patient initially had a left inguinal hernia repair approximately 10-15 years ago followed by recurrence where a left repeat inguinal hernia repair was done approximately 1-2 years ago at which time he was seen, at which time, recurrence was noted again, but in the superolateral aspect with a bulge in the ventral area rather than the inguinal area. This was repaired on 07/04/2017, with laparoscopic assistance without mesh by myself and the patient was doing well since until approximately a few weeks ago when he noted another recurrence. The patient was seen and evaluated in the office. He was noted to have a recurrent incisional what seems to be more of a ventral hernia in the lateral and superior aspect of a prior inguinal hernia repair, more likely in an area of the transition between the rectus sheath and the external oblique aponeurosis. During the prior surgery, it was noted that this hernia was significantly lateral and superior to an area of a direct or indirect inguinal hernia and was likely incisional from one of the prior surgeries. Initially repair was tried primarily without mesh given prior discussions with the patient and on evaluating him again, it is recurrent and does have bowel contents noted in it and repair is indicated and at this time, it should be utilized with mesh. A long discussion was had with the patient in the office regarding these findings and recommendations. This time around given recurrence after satisfactory primary repair prior, I strongly encouraged him to consider mesh and after discussing the risks, benefits, and alternatives, the patient expressed understanding and desired to proceed with repair and mesh placement at this time around. Consent was obtained and the patient was scheduled for 03/03/2018. OPERATIVE NOTE: The patient was taken to the operating room and placed on the operating table in supine position with bilateral arms out. All bony prominences were well padded with Gel Pads. Preoperative time-out was taken identifying the patient, procedure, operative site, and surgical staff. SCDs were placed. No Bautista catheter was inserted given the patient voided prior to entering the operating room. General anesthesia was induced. The patient was intubated. The abdomen was clipped, prepped, draped in standard surgical fashion. Once the patient was made comfortable, the bowel contents were reduced out of the hernia sac. An infraumbilical incision was made using a fresh #15 scalpel and carried down to the fascia which was elevated and incised. The entry into the abdomen was identified using open Tangela technique without complication. A 12 mm Tangela trocar was inserted and the abdomen was insufflated to 12-15 mmHg. The patient tolerated the insufflation well. The laparoscope was inserted. The abdomen was inspected. In the right upper quadrant, liver was noted with blunt edges and mild fatty changes. In the left upper quadrant, stomach was otherwise normal. In the right lower quadrant, there were some omental adhesions to the anterior abdominal wall, but the portions of the colon and small bowel that could be identified were otherwise normal. In the pelvis, there were no abnormalities noted and in the left lower quadrant, there was a moderate-sized left ventral hernia significantly superior and lateral to an area where direct or indirect hernia would be noted and it was medial to the anterior superior iliac spine, just approximately at the level of it. There was a portion of sigmoid colon noted just at the fascial defect and the fascial defect was noted to be superior to the iliac vessels. Secondary trocars were placed under direct visualization beginning with a 5 mm left mid abdomen, 5 mm right mid abdomen trocar site. Laparoscopic graspers were used and the sigmoid colon was mobilized from its peritoneal attachments, so a 4-5 cm area of overlap could be noted. Care was taken to ensure no injury to the vessels or the mesentery. The hernia defect was noted with a large sac, but the contents had already prior been reduced. The hernia defect size was approximately 5 cm x 4 cm and approximately 3-4 cm deep. Once there was circumferential clearance of approximately 4-5 cm after small adhesions were dissected out, the hernia defect was identified clearly. At this time in the inferomedial aspect of the hernia sac, there was some scar tissue identified and this was likely from prior surgery and this was dissected free from the fascial defect. Venous hemostasis was achieved from the peritoneal lining using laparoscopic clips and electrocautery as necessary. Once this was complete, given its proximity to the iliac vessels and sigmoid colon, the decision was made to proceed to open repair with laparoscopic assistance to ensure no injury to the colon or vessels with goals of primary closure of the defect as well as mesh repair. The laparoscope was taken out and the abdomen desufflated. The trocar sites were left in place. The area of the hernia defect was identified and a 4-cm incision was made overlying the hernia defect apex. The hernia sac was dissected out, divided and ligated, and sent to pathology for review. The fascial edges were cleaned and refreshened. Once this was completed, it was noted to reapproximate without significant tension. At this time, a round Bard Ventralight mesh was opened and inserted and noted to be appropriately fitting with good overlap. The Bard mesh was circumferentially sutured to the fascial defect circumferentially using a 2-0 Prolene suture. Following this, the fascial defect was closed using a #0 Prolene interrupted sutures. Once this was complete, the wound was irrigated. Subcutaneous tissue was reapproximated using #0 Vicryl sutures followed by closure of the skin using 4-0 Monocryl subcuticular running suture. At this time, the abdomen was reinsufflated and laparoscope was inserted. Good mesh placement without abnormality was noted. The defect was closed and mesh covering the defect with mesh side on the defect and the nonadherent side of the mesh facing towards the bowel and the vessels. Laparoscopic absorbable tacker was then used to place a few anteromedial tacks around the area of the rectus sheath, but none were placed laterally or inferiorly to ensure bladder given potential nerve or vascular injury. At this time, the abdomen was slowly desufflated when the mesh placement was noted to be sufficient and hernia repaired sufficiently. The abdomen was slowly desufflated and mesh noted to be in appropriate positioning and all abdominal contents stable. The secondary trocars were removed under direct visualization followed by the umbilical trocar site. The umbilical trocar site fascial defect was closed using #0 Vicryl [id number] suture. The remaining skin incisions were all cleansed and were closed using 4-0 Monocryl subcuticular interrupted sutures. Skin glue and Steri-Strips were placed. At this time, we concluded the procedure. The patient was extubated and taken to postanesthetic care unit and discharged in stable condition. Dario Figueroa M.D. DR: Brandon JOB#: [id number] CC: SUE
== END 2018-03-03 14:00 | disposition home or self-care (01) ==
LOC: SDS 07:51
DX: K43.2 Incisional hernia without obstruction or gangrene (principal); I10 Essential (primary) hypertension; E78.5 Hyperlipidemia, unspecified; K21.9 Gastro-esophageal reflux disease without esophagitis; N40.0 Benign prostatic hyperplasia without lower urinary tract symptoms; M19.90 Unspecified osteoarthritis, unspecified site; Z85.828 Personal history of other malignant neoplasm of skin
CPT/HCPCS: 49656; C1781; J0690; J1885; J2704; J3010; 94003; 94150